=== PATIENT | female | born 1945 | race Caucasian/White ===

== ENCOUNTER 2017-09-30 07:44 | Day surgery (SDC) | payer OTHER ==
[~2017-09-30] VITALS: Wt 105.0 kg
[~2017-09-30 07:44] MED LIST: ACYC400; ACYC400 PO; ACYC800 PO; ACYCLOVIR; ALBIPROI INH; ALBU90OI; ALBU90OI61 INH; ALPR.5; ASPI81EC PO; ATOR10; BENTYL10 MG PO; BUPR150ER; CALCAVITDA; CARV25 PO; CARV6.25 PO; CONEST.625 PO; CONEST1.25; DIGO.125 PO; DOC250 PO; ENTRESTO 49 MG1 EACH PO; Effer-K 10 Meq10 MEQ; FLUO10 PO; FLUO20; FLUO20 PO; FLUSAL1005 INH; FLUSAL2505; FLUSAL2505 IH; FURO20; FURO20 PO; FURO40 PO; HYDACE5 PO; HYDACE5325 PO; LEVSOD50; LEVSOD50 PO; LISI10 PO; LISI5; LISI5 PO; LOSA25; LOVA20; METR500 PO; MORP15ER PO; MORP20ER PO; NEBI10; NEBI10 PO; ONDA4 PO; OXYACE5T PO; OXYB5; OXYC5; OXYGEN; POTA10T; POTCHL10ER PO; PRAV10; PRAV20 PO; PROM25 PO; PROM25S PR; RISE35; RISE35 PO; RXONDA4ODT MM; RXOXYACE PO; RXPROM25S PR; SPIR25 PO; TEMA30 PO; THEO200ERA PO; TIOT18 IH; TRAM50; TRAM50 PO; TRAZ100; VITAMIN D31000 UNIT PO; WARF1; WARF1 PO; WARF2 PO; WARF2.5 PO; WARF3 PO; WARF4; WARF5 PO; Zithromax250 MG PO
== END 2017-09-30 13:30 | disposition home or self-care (01) ==
LOC: MHTC 07:44
PROC: 0JPT0PZ Removal of Cardiac Rhythm Related Device from Trunk Subcutaneous Tissue and Fascia, Open Approach (ICD-10-PCS; principal; 2017-09-30)
PROC: 0JH608Z Insertion of Defibrillator Generator into Chest Subcutaneous Tissue and Fascia, Open Approach (ICD-10-PCS; principal; 2017-09-30)
DX: Z45.02 Encounter for adjustment and management of automatic implantable cardiac defibrillator (principal); I44.7 Left bundle-branch block, unspecified; I42.0 Dilated cardiomyopathy; I34.0 Nonrheumatic mitral (valve) insufficiency; I11.0 Hypertensive heart disease with heart failure; I50.9 Heart failure, unspecified; E03.9 Hypothyroidism, unspecified; J44.9 Chronic obstructive pulmonary disease, unspecified; N28.9 Disorder of kidney and ureter, unspecified; E56.1 Deficiency of vitamin K; Z88.2 Allergy status to sulfonamides; Z79.899 Other long term (current) drug therapy; Z79.82 Long term (current) use of aspirin; Z79.01 Long term (current) use of anticoagulants; Z87.891 Personal history of nicotine dependence; Z95.2 Presence of prosthetic heart valve
CPT/HCPCS: 33264; 99152; 99153; C1781; C1882; J0690; J1644; J2250; J2405; J3010; J7030; J7040

== ENCOUNTER → 2022-06-06 | Outpatient (CLI) | payer OTHER | END | disposition home or self-care (01) | LOC: LAB 09:04 → LAB SHORT 09:04 | DX: Z79.01 Long term (current) use of anticoagulants (principal); Z51.81 Encounter for therapeutic drug level monitoring | CPT/HCPCS: 36416; 85610 ==

== ENCOUNTER 2022-10-28 14:10 | Emergency (ER) | payer OTHER ==
[~2022-10-28] VITALS: Ht 162.6 cm; Wt 87.5 kg
[2022-10-28 15:02] LABS: BASOPHILS ABSOLUTE AUTO 0.02 K/mm3 (0.00-0.23); BASOPHILS PERCENT AUTO 0 % (0-2); EOSINOPHILS ABSOLUTE AUTO 0.06 K/mm3 (0.00-0.68); EOSINOPHILS PERCENT AUTO 1 % (0-6); Hematocrit 39.9 % (33.0-51.0); IMMATURE GRAN ABSOLUTE AUTO 0.04 K/mm3 (0.00-0.10); IMMATURE GRAN PERCENT AUTO 0 % (0-1); LYMPHOCYTES ABSOLUTE AUTO 1.11 K/mm3 (0.84-5.20); LYMPHOCYTES PERCENT AUTO 10 % (21-46); MONOCYTES ABSOLUTE AUTO 0.51 K/mm3 (0.16-1.47); MONOCYTES PERCENT AUTO 5 % (4-13); Mean Corpuscular HGB 30.7 pg (26.0-34.0); Mean Corpuscular HGB Conc 32.6 g/dL (31.5-36.5); Mean Corpuscular Volume 94 fL (80-100); Mean Platelet Volume 11.1 fL (9.1-12.4); NEUTROPHILS ABSOLUTE AUTO 9.25 K/mm3 (1.96-9.15); NEUTROPHILS PERCENT AUTO 84 % (41-73); Platelet Count 185 K/mm3 (150-400); RDW Coefficient Variation 14.2 % (11.7-14.2); RDW Standard Deviation 49.1 fL (35.1-46.3); Red Blood Cell Count 4.24 M/mm3 (3.80-5.20); White Blood Cell Count 10.99 K/mm3 (4.00-11.30)
[2022-10-28 15:22] LABS: Albumin, Blood 3.4 g/dL (3.4-5.0); Albumin/Globulin Ratio 0.8 (0.8-1.8); Bun/Creatinine Ratio 14.7 (12.0-20.0); Calcium, Blood 9.5 mg/dL (8.5-10.1); Creatinine, Blood 1.91 mg/dL (0.40-1.00); Potassium, Blood 4.6 mmol/L (3.5-5.5); Total Protein, Blood 7.4 g/dL (6.4-8.2)
[2022-10-28] MEDS ORDERED: NEBIVOLOL HCL5 MG PO (16:35)
[2022-10-28] MEDS ORDERED: ONDA4 PO (17:41)
[2022-10-28 17:47] VITALS: BP 114/54
[2022-10-28 19:14] LABS: International Normalized Ratio 3.74; Prothrombin Time Results 36.4 Sec (9.7-11.5)
== END 2022-10-28 17:45 | disposition home or self-care (01) ==
LOC: ER 14:10
PROVIDERS: Emergency Medicine; Student in an Organized Health Care Education/Training Program
DX: R11.2 Nausea with vomiting, unspecified (principal); F17.200 Nicotine dependence, unspecified, uncomplicated; Z88.2 Allergy status to sulfonamides; Z91.048 Other nonmedicinal substance allergy status
CPT/HCPCS: 36415; 80053; 83690; 84484; 85025; 85610; 93005; 93010; 96374; 99283-25; J2405

== ENCOUNTER 2023-11-12 21:32 | Emergency (ER) | payer OTHER ==
[~2023-11-12] VITALS: Ht 162.6 cm; Wt 90.7 kg
[2023-11-13 08:12] VITALS: BP 105/65
== END 2023-11-13 08:35 | disposition home or self-care (01) ==
LOC: ER 21:32
DX: G89.3 Neoplasm related pain (acute) (chronic) (principal); C18.9 Malignant neoplasm of colon, unspecified; E86.0 Dehydration; N39.0 Urinary tract infection, site not specified; I10 Essential (primary) hypertension; B18.9 Chronic viral hepatitis, unspecified; F17.200 Nicotine dependence, unspecified, uncomplicated; Z88.2 Allergy status to sulfonamides; Z91.048 Other nonmedicinal substance allergy status; Z79.82 Long term (current) use of aspirin; Z79.890 Hormone replacement therapy; Z79.51 Long term (current) use of inhaled steroids; Z79.01 Long term (current) use of anticoagulants; Z79.899 Other long term (current) drug therapy

== ENCOUNTER 2024-08-26 11:51 | Inpatient (IN) | payer OTHER ==
[~2024-08-26] VITALS: Ht 162.6 cm; Wt 76.3 kg
[~2024-08-26 11:51] MED LIST changes: +CEPH500 PO; +DOCU100 PO; +HYDR1TAB94 PO; +NARCAN4 M1; +NEBIVOLOL HCL5 MG PO
[2024-08-26] MEDS ORDERED: Ipratropium/Albuterol SulF 2.5-0.5MG/3 ML Amp INH ONE (12:40)
[2024-08-26] MEDS ORDERED: MethylPREDNISolone Sod Succ 125 MG Vial IV ONE (12:40)
[2024-08-26 13:13] LABS: BASOPHILS ABSOLUTE AUTO 0.03 K/mm3 (0.00-0.23); BASOPHILS PERCENT AUTO 0 % (0-2); EOSINOPHILS ABSOLUTE AUTO 0.08 K/mm3 (0.00-0.68); EOSINOPHILS PERCENT AUTO 1 % (0-6); Hematocrit 39.8 % (33.0-51.0); Hemoglobin 12.5 g/dL (11.5-16.0); IMMATURE GRAN ABSOLUTE AUTO 0.03 K/mm3 (0.00-0.10); IMMATURE GRAN PERCENT AUTO 0 % (0-1); LYMPHOCYTES ABSOLUTE AUTO 1.04 K/mm3 (0.84-5.20); LYMPHOCYTES PERCENT AUTO 12 % (21-46); MONOCYTES ABSOLUTE AUTO 0.53 K/mm3 (0.16-1.47); MONOCYTES PERCENT AUTO 6 % (4-13); Mean Corpuscular HGB 30.2 pg (26.0-34.0); Mean Corpuscular HGB Conc 31.4 g/dL (31.5-36.5); Mean Corpuscular Volume 96 fL (80-100); NEUTROPHILS PERCENT AUTO 80 % (41-73); Platelet Count 168 K/mm3 (150-400); RDW Coefficient Variation 13.2 % (11.7-14.2); RDW Standard Deviation 46.1 fL (35.1-46.3); Red Blood Cell Count 4.14 M/mm3 (3.80-5.20); White Blood Cell Count 8.61 K/mm3 (4.00-11.30)
[2024-08-26] MEDS ORDERED: Aspirin 81 MG Chew PO ONE (13:25)
[2024-08-26 13:37] LABS: Influenza A, PCR NEGATIVE (NEGATIVE); Influenza B, PCR NEGATIVE (NEGATIVE); Resp Syncytial Virus, PCR NEGATIVE (NEGATIVE); SARS-Cov-2 (COVID-19) PCR, MMC NEGATIVE (NEGATIVE)
[2024-08-26 13:39] LABS: Albumin, Blood 3.2 g/dL (3.4-5.0); Albumin/Globulin Ratio 0.8 (0.8-1.8); Bilirubin, Total 0.8 mg/dL (0.1-1.0); Bun/Creatinine Ratio 15.5 (12.0-20.0); Calcium, Blood 10.2 mg/dL (8.5-10.1); Creatinine, Blood 1.81 mg/dL (0.40-1.00); Globulin, Blood 3.8 g/dL (2.2-4.0); Potassium, Blood 4.4 mmol/L (3.5-5.5)
[2024-08-26] MEDS ORDERED: Ondansetron HCl 2 MG / ML 2ML Vial IV PRN (17:15)
[2024-08-26] MEDS ORDERED: Albuterol 2.5 MG/3 ML VIAL INH PRN (17:30)
[2024-08-26] MEDS ORDERED: Tiotropium Bromide 2.5 MCG/ACT MIST INHAL (10 ACT/4 GM) INH SCH (17:30)
[2024-08-26] MEDS ORDERED: Mometasone/Formoterol MDI 200/5 mcg 13 GM INH SCH (17:35)
[2024-08-26] MEDS ORDERED: Furosemide 10 MG/ML 4ML Vial IV SCH (18:00)
[2024-08-26 18:08] LABS: International Normalized Ratio 1.03
[2024-08-26 19:22] VITALS: BP 105/56
[2024-08-26] MEDS ORDERED: Warfarin Sodium 5 MG Tab PO ONE (19:55)
[2024-08-26 20:18] LABS: Anti-Xa UFH, PHA Monitoring <0.10 IU/mL
--- NOTE | 2024-08-26 20:34 | NUR ---
PATIENT IS A NEW ADMIT FROM THE ED. ALERT AND ORIENTED, ONE ASSIST FROM GURNEY TO BED. DENIES CHEST PAIN AND N/V. SOB W/EXERTION. ON ROOM AIR. TELEMETRY V-PACED 90. ORIENTED TO ROOM AND CALL LIGHT SYSTEM. FOOD PROVIDED PER DIET ORDER. WCTM.
[2024-08-26] MEDS ORDERED: Dose Adjust by Pharmacy XX STA (20:44)
[2024-08-26 20:45] LABS: Digoxin (Lanoxin) <0.06 ug/mL (0.80-2.00)
[2024-08-26] MEDS ORDERED: Heparin Sodium 5000 Units/ML 1ML MDV IV ONE (20:45)
[2024-08-26] MEDS ORDERED: Heparin Sodium,Porcine/0.5 NS 500 ML IV SCH (20:45)
[2024-08-27] MEDS ORDERED: FentaNYL Citrate 50 MCG/ML 2 ML Injection IV PRN (01:55)
--- NOTE | 2024-08-27 02:38 | NUR ---
HOSPITALIST CONTACT PT C/O OF PAIN IN SIDES/ABD R/T CANCER DX. PT TAKES OXYCODONE AT HOME. CALL TO HOSPITALIST. SPOKE TO DR RDZ. PER --ORDER TO RESUME HOME MED Q6 IF GFR >60, IF NOT--OK TO ORDER FENTANYL 25-50MCG Q4 PRN. VERIFIED PT HAS IMPAIRED KIDNEY FUNCTION AND GFR LESS THAN 60. ENTERED ORDER FOR FENTANYL PER ORDER.
--- NOTE | 2024-08-27 04:03 | NUR ---
SHIFT SUMMARY PATIENT HAD NO ACUTE CHANGES. AXOX 4 AND SBA TO BSC. SOB W/EXERTION. ON LASIX. DENIES CHEST PAIN, AND N/V. VSS/AFEBRILE. REPORTED ABDOMEN PAIN AND IV FENTANYL 50 MCG GIVEN PER EMAR. PIV'S INTACT. HEPARIN INFUSING @ 18.9 mL/HR MANAGE BY PHARMACY. TELE MONITOR V-PACED 90. REPORTS SHE IS NON-COMPLIANT WITH HOME MEDICATION. CALL LIGHT IN REACH. BED IN LOWEST POSITION. WILL CONTINUE TO MONITOR UNTIL DAY SHIFT NURSE ASSUMES CARE
[2024-08-27 04:56] LABS: Albumin/Globulin Ratio 0.9 (0.8-1.8); Bilirubin, Total 0.7 mg/dL (0.1-1.0); Bun/Creatinine Ratio 18.8 (12.0-20.0); Calcium, Blood 9.9 mg/dL (8.5-10.1); Creatinine, Blood 1.81 mg/dL (0.40-1.00); Globulin, Blood 3.4 g/dL (2.2-4.0); Potassium, Blood 4.4 mmol/L (3.5-5.5); Total Protein, Blood 6.4 g/dL (6.4-8.2)
[2024-08-27 05:07] VITALS: BP 122/80
[2024-08-27] MEDS ORDERED: Clarify Drug Order XX ONE (05:10)
[2024-08-27 05:25] LABS: International Normalized Ratio 1.07; Prothrombin Time Results 11.4 Sec (9.7-11.5)
[2024-08-27] MEDS ORDERED: Levothyroxine Sodium 0.05 MG Tab PO SCH (06:00)
[2024-08-27 07:39] VITALS: BP 101/74
--- NOTE | 2024-08-27 08:10 | NUR ---
CALLED DR VITALE RE BP AND LASIX DUE. HE CHANGING ORDERS. PARAMETERS FOR METOPROLOL GIVEN.
[2024-08-27 08:15] VITALS: BP 116/76
[2024-08-27] MEDS ORDERED: Aspirin 81 MG Chew PO SCH (09:00)
[2024-08-27] MEDS ORDERED: Metoprolol Succinate 25 MG TABCR PO SCH (09:00)
[2024-08-27] MEDS ORDERED: FLUoxetine HCL 20 MG CAP PO SCH (09:00)
[2024-08-27] MEDS ORDERED: Docusate Sodium 100 MG Cap PO SCH (09:00)
[2024-08-27] MEDS ORDERED: Dose Adjust by Pharmacy XX STA (11:23)
[2024-08-27 11:48] VITALS: BP 106/66
[2024-08-27] MEDS ORDERED: Furosemide 40 MG Tab PO SCH (14:00)
[2024-08-27] MEDS ORDERED: Digoxin 0.125 MG Tab PO SCH (14:00)
[2024-08-27 16:38] VITALS: BP 112/82
[2024-08-27] MEDS ORDERED: Warfarin Sodium 4 MG Tab PO ONE (18:00)
--- NOTE | 2024-08-27 19:20 | NUR ---
PT PLEASANT COOP TODAY. STATES STOPPED TAKING HOME MEDS 6 MONTHS AGO, THOUGHT WAS GOING TO . ENCOURAGED HER TO TAKE MEDS AND BE STRONG IS ABLE. AMBULATING TO BATHROOM TODAY SBA FWW. PT STATES SOB IMPROVED. FEELING MORE POSITIVE. NO OTHER CONCERNS NOTED. BED IN LOW POSITION, CALL LITE IN REACH, CALLS APPROP
[2024-08-27 19:49] VITALS: BP 71/61
[2024-08-28 01:46] VITALS: BP 86/54
[2024-08-28] MEDS ORDERED: Midodrine 5 MG Tab PO ONE (02:10)
[2024-08-28 03:19] VITALS: BP 116/76
[2024-08-28 05:41] LABS: BASOPHILS ABSOLUTE AUTO 0.02 K/mm3 (0.00-0.23); BASOPHILS PERCENT AUTO 0 % (0-2); EOSINOPHILS ABSOLUTE AUTO 0.08 K/mm3 (0.00-0.68); EOSINOPHILS PERCENT AUTO 1 % (0-6); Hematocrit 37.5 % (33.0-51.0); Hemoglobin 12.2 g/dL (11.5-16.0); IMMATURE GRAN ABSOLUTE AUTO 0.06 K/mm3 (0.00-0.10); IMMATURE GRAN PERCENT AUTO 1 % (0-1); LYMPHOCYTES ABSOLUTE AUTO 2.02 K/mm3 (0.84-5.20); LYMPHOCYTES PERCENT AUTO 16 % (21-46); MONOCYTES PERCENT AUTO 6 % (4-13); Mean Corpuscular HGB Conc 32.5 g/dL (31.5-36.5); Mean Corpuscular Volume 95 fL (80-100); Mean Platelet Volume 11.3 fL (9.1-12.4); NEUTROPHILS ABSOLUTE AUTO 9.46 K/mm3 (1.96-9.15); NEUTROPHILS PERCENT AUTO 77 % (41-73); Platelet Count 208 K/mm3 (150-400); RDW Coefficient Variation 13.4 % (11.7-14.2); RDW Standard Deviation 46.6 fL (35.1-46.3); Red Blood Cell Count 3.93 M/mm3 (3.80-5.20); White Blood Cell Count 12.34 K/mm3 (4.00-11.30)
[2024-08-28 05:53] LABS: Anti-Xa UFH, PHA Monitoring 0.42 IU/mL; International Normalized Ratio 1.1; Prothrombin Time Results 11.7 Sec (9.7-11.5)
[2024-08-28 06:09] LABS: Bun/Creatinine Ratio 22.8 (12.0-20.0); Calcium, Blood 10.2 mg/dL (8.5-10.1); Creatinine, Blood 2.19 mg/dL (0.40-1.00); Potassium, Blood 3.9 mmol/L (3.5-5.5)
--- NOTE | 2024-08-28 06:27 | NUR ---
EMULSIFICATION OPERATOR SUMMARY W/HOSPITALIST CONTACT PT A/OX3. FORGETFUL. ABLE TO MAKE NEEDS KNOWN WHEN PROMPTED AND WHEN AT BEDSIDE. PT NOT ALWAYS REMEMBERING TO USE CALL LIGHT FOR ASSIST. PT ON CONT HEPARIN DRIP--NO CHANGES TO RATE OF INFUSION. FOUND PT BLOOD PRESSURE TO BE LOW AT 0146; NOTED AT THIS TIME THAT PREVIOUS BP IS ALSO LOW. CALL TO HOSPITALIST. SPOKE TO DR RDZ. ADVISED OF PT DX CHF EXAC. ADVISED PT ANXIOUS/RESTLESS. NEW ORDER FOR ONE TIME DOSE MIDODRINE 5MG. RECHECK OF BP SHOWED IMPROVED AT 116/76. PT WAS WAKEFUL ALL NIGHT. THE PT DID NOT SLEEP. PT PRESENTS ANXIOUS AND RESTLESS T/O THE SHIFT. PT CANT GET COMFORTABLE AND COMPLAINING OF "EBEE GEBEES" WHEN ASKED WHAT THAT MEANS, PT STATES DISCOMFORT/RESTLESSNESS IN THE LEGS. PT GIVEN FENTANYL 2X FOR LEG PAIN. CALL LIGHT ACCESSIBLE. BED ALARM IN PLACE. REGULAR INTERVAL ROUNDING COMPLETE. WILL CONTINUE TO MONITOR UNTIL REPORT GIVEN TO ONCOMING NURSE.
[2024-08-28 07:49] VITALS: BP 121/87
[2024-08-28] MEDS ORDERED: Empagliflozin 10 MG TAB PO SCH (09:00)
[2024-08-28] MEDS ORDERED: Metoprolol Succinate 25 MG TABCR PO SCH (09:00)
[2024-08-28 12:22] VITALS: BP 123/73
[2024-08-28 16:56] VITALS: BP 121/80
[2024-08-28] MEDS ORDERED: Warfarin Sodium 4 MG Tab PO ONE (18:00)
--- NOTE | 2024-08-28 18:58 | NUR ---
SHIFT SUMMARY PT IS A/OX3, FORGETFUL AND IMPULSIVE AT TIMES, BED/CHAIR ALARM ON. SBA TO BSC/CHAIR. CONTINUING HEPARING DRIP AT 18.9 ML/HR AND 15 U/KG/HR. ON TELE, VENTIRCULAR PACED. ON RA, SATS MAINTAINING >95%. PT UP TO THE CHAIR THROUGHOUT THE DAY.
[2024-08-28 20:47] VITALS: BP 118/72
[2024-08-29] VITALS (7 sets, daily range): BP systolic 113–138; BP diastolic 71–85
[2024-08-29 05:10] LABS: BASOPHILS ABSOLUTE AUTO 0.02 K/mm3 (0.00-0.23); BASOPHILS PERCENT AUTO 0 % (0-2); EOSINOPHILS ABSOLUTE AUTO 0.14 K/mm3 (0.00-0.68); EOSINOPHILS PERCENT AUTO 2 % (0-6); Hematocrit 35.8 % (33.0-51.0); Hemoglobin 11.6 g/dL (11.5-16.0); IMMATURE GRAN ABSOLUTE AUTO 0.05 K/mm3 (0.00-0.10); IMMATURE GRAN PERCENT AUTO 1 % (0-1); LYMPHOCYTES ABSOLUTE AUTO 1.51 K/mm3 (0.84-5.20); LYMPHOCYTES PERCENT AUTO 17 % (21-46); MONOCYTES ABSOLUTE AUTO 0.57 K/mm3 (0.16-1.47); MONOCYTES PERCENT AUTO 6 % (4-13); Mean Corpuscular HGB 30.6 pg (26.0-34.0); Mean Corpuscular HGB Conc 32.4 g/dL (31.5-36.5); Mean Corpuscular Volume 95 fL (80-100); Mean Platelet Volume 11.3 fL (9.1-12.4); NEUTROPHILS ABSOLUTE AUTO 6.55 K/mm3 (1.96-9.15); NEUTROPHILS PERCENT AUTO 74 % (41-73); Platelet Count 202 K/mm3 (150-400); RDW Coefficient Variation 13.3 % (11.7-14.2); RDW Standard Deviation 45.7 fL (35.1-46.3); Red Blood Cell Count 3.79 M/mm3 (3.80-5.20); White Blood Cell Count 8.84 K/mm3 (4.00-11.30)
[2024-08-29 05:18] LABS: Anti-Xa UFH, PHA Monitoring 0.33 IU/mL; International Normalized Ratio 1.39; Prothrombin Time Results 14.5 Sec (9.7-11.5)
[2024-08-29 05:39] LABS: Bun/Creatinine Ratio 23.1 (12.0-20.0); Calcium, Blood 9.7 mg/dL (8.5-10.1); Creatinine, Blood 2.08 mg/dL (0.40-1.00); Potassium, Blood 3.8 mmol/L (3.5-5.5)
[2024-08-29] MEDS ORDERED: Clarify Drug Order XX ONE (05:45)
--- NOTE | 2024-08-29 05:57 | NUR ---
SHIFT SUMMARY PT IS SITTING IN BED AT MOMENT. PT HAS BEEN RESTLESS, IMPULSIVE, AND FORGETFULL THROUGHOUT NIGHT. SHE HAS GOTTEN OUT OF BED NUMEROUS TIMES DURING THIS SHIFT. EVERY TIME, STAFF REMINDS PT TO USE CALL LIGHT IF IN NEED OF ANYTHING, AND PT VERBALIZES UNDERSTANDING. HOWEVER, PT DISREGARDS INSTRUCTIONS. PT HAS BEEN AOX3 AND OTHERWISE COOPERATIVE. PT IS ON HEPARIN GTT AND TELEMETRY. NO ACUTE EVENTS OVERNIGHT.
--- NOTE | 2024-08-29 15:07 | NUR ---
SHIFT SUMMARY PATIENT AMBULATING TO AND FROM BATHROOM THIS SHIFT. A/OX3-4, FORGETFUL. CONTINUES ON HEPARIN DRIP AND COUMADIN PER MAR. VSS. DISCOURAGED AT HAVING TO STAY IN THE HOSPITAL UNTIL LABS ARE THERAPEUTIC. DAUGHTER IN LAW'S NUMBER GIVEN TO DR VITALE HE WANTED TO SPEAK TO FAMILY. CALL LIGHT IN REACH. CARES ONGOING.
[2024-08-29] MEDS ORDERED: Furosemide 40 MG Tab PO SCH (15:35)
--- NOTE | 2024-08-29 15:56 | NUR ---
PATIENT C/O FEELING NAUSEATED AND "FEELING PLAIN SICK", STATES TO HAVING BM THIS SHIFT. ACTIVE BOWEL TONES. ZOFRAN ADMINISTERED PER SEP.
[2024-08-29] MEDS ORDERED: Warfarin Sodium 4 MG Tab PO ONE (18:00)
[2024-08-30] VITALS (7 sets, daily range): BP systolic 85–117; BP diastolic 60–77
[2024-08-30 05:31] LABS: BASOPHILS ABSOLUTE AUTO 0.02 K/mm3 (0.00-0.23); BASOPHILS PERCENT AUTO 0 % (0-2); EOSINOPHILS ABSOLUTE AUTO 0.08 K/mm3 (0.00-0.68); EOSINOPHILS PERCENT AUTO 1 % (0-6); Hematocrit 36.8 % (33.0-51.0); Hemoglobin 12.1 g/dL (11.5-16.0); IMMATURE GRAN ABSOLUTE AUTO 0.04 K/mm3 (0.00-0.10); IMMATURE GRAN PERCENT AUTO 1 % (0-1); LYMPHOCYTES ABSOLUTE AUTO 1.18 K/mm3 (0.84-5.20); LYMPHOCYTES PERCENT AUTO 15 % (21-46); MONOCYTES ABSOLUTE AUTO 0.45 K/mm3 (0.16-1.47); MONOCYTES PERCENT AUTO 6 % (4-13); Mean Corpuscular HGB 30.9 pg (26.0-34.0); Mean Corpuscular HGB Conc 32.9 g/dL (31.5-36.5); Mean Corpuscular Volume 94 fL (80-100); Mean Platelet Volume 10.9 fL (9.1-12.4); NEUTROPHILS ABSOLUTE AUTO 6.07 K/mm3 (1.96-9.15); NEUTROPHILS PERCENT AUTO 77 % (41-73); Platelet Count 189 K/mm3 (150-400); RDW Coefficient Variation 13.4 % (11.7-14.2); RDW Standard Deviation 45.4 fL (35.1-46.3); Red Blood Cell Count 3.91 M/mm3 (3.80-5.20); White Blood Cell Count 7.84 K/mm3 (4.00-11.30)
[2024-08-30 05:46] LABS: Anti-Xa UFH, PHA Monitoring 0.33 IU/mL; International Normalized Ratio 1.89; Prothrombin Time Results 19.3 Sec (9.7-11.5)
[2024-08-30 06:00] LABS: Bun/Creatinine Ratio 18.7 (12.0-20.0); Calcium, Blood 9.8 mg/dL (8.5-10.1); Creatinine, Blood 2.09 mg/dL (0.40-1.00); Magnesium, Blood 2.1 mg/dL (1.6-2.4)
--- NOTE | 2024-08-30 06:17 | NUR ---
SHIFT SUMMARY PT IS RESTING COMFORTABLY IN BED. PT HAS BEEN IN AND OUT OF BED THE ENTIRE NIGHT, ONLY GETTING A COUPLE OF HOURS OF SLEEP OVERNIGHT. PT HAS BEEN RESTLESS BUT COMPLIANT. SHE STILL DOES NOT CALL FOR HER NEEDS. TELEMETRY IS ON. BED REMAINS LOCKED IN LOWEST POSITION WITH BED ALARM ARMED. PT IS ON HEPARIN DRIP, AND HAS BEEN CAUTIONED ABOUT ACCIDENTAL REMOVAL IF SHE STANDS UP WITHOUT ASSISTANCE. PT VERBALIZES UNDERSTANDING. OTHERWISE, NO ACUTE EVENTS OVERNIGHT.
[2024-08-30] MEDS ORDERED: Clarify Drug Order XX ONE (06:25)
[2024-08-30] MEDS ORDERED: TraMADol HCl 50 MG Tab PO PRN ×2 (15:10→15:25)
[2024-08-30] MEDS ORDERED: Warfarin Sodium 5 MG Tab PO SCH (18:00)
[2024-08-30] MEDS ORDERED: Pramipexole DI-HCL 0.125 MG Tab PO SCH (21:00)
[2024-08-31 00:42] VITALS: BP 123/71
--- NOTE | 2024-08-31 02:53 | NUR ---
INTERMITTENT EPISODES OF PACING, VOICED HAVING THE "JOSE DE JESUS BEE ERICK BEE'S". VOICED ANXIETY OF UNKNOWN ORIGIN. MD NOTIFIED AND AATIVAN 0.5 MF PO X 1 ORDERED. CALL LIGHT IN REACH
[2024-08-31] MEDS ORDERED: LORazepam 0.5 MG Tab PO ONE (02:55)
--- NOTE | 2024-08-31 03:25 | NUR ---
SURVEY RESEARCH ASSOCIATE SUMMARY BP LOW AT SHIFT START, BUT TRENDED UP TO WNL, OTHERWISE VSS. ALERT AND ORIENTED, HEPARIN DRIP CONTINUES (SEE MAR FOR DETAILS). INTERMITTENT RESTLESSNESS, MULTIPLE ATTEMPTS TO DISCUSS, REDIRECT. VOICED FEELING "JOSE DE JESUS BEE ERICK BEES". MD NOTIFIED AND ATIVAN PO X 1 ORDERED/ADMINISTERED. UP WITH OBSERVATOIN. ABLE TO REPOSITION SELF IN BED FOR COMFORT. CALL LIGHT IN REACH, RAILS UP X 2 AND BED IN LOW POSITION FOR SAFETY. WILL CONTINUE TO MONITOR.
[2024-08-31 04:01] VITALS: BP 105/70
[2024-08-31 05:58] LABS: Hematocrit 35.8 % (33.0-51.0); Hemoglobin 11.7 g/dL (11.5-16.0); Platelet Count 192 K/mm3 (150-400)
[2024-08-31 06:14] LABS: Anti-Xa UFH, PHA Monitoring 0.29 IU/mL; International Normalized Ratio 2.16; Prothrombin Time Results 21.8 Sec (9.7-11.5)
[2024-08-31] MEDS ORDERED: Dose Adjust by Pharmacy XX STA ×2 (07:07→14:20)
[2024-08-31 07:13] VITALS: BP 115/74
--- NOTE | 2024-08-31 10:45 | NUR ---
PATIENT ASSISTED TO BEDSIDE COMMODE. SCANT VOID NO BM. UP TO CHAIR IN ROOM. BEDDING CHANGE. PATIENT ASSISTED WITH PHONE CALL. CALL LIGHT IN REACH. FAMILY IN ROOM. WILL CONTINUE TO MONITOR WHILE PRIMARY RN ON BREAK.
[2024-08-31 11:44] VITALS: BP 107/68
--- NOTE | 2024-08-31 16:16 | NUR ---
SUMMARY INCREASED HEPARIN DRIP TO 17 UNITS/KG/HR. PATIENT STILL GETS UP WITHOUT PRESSING CALL LIGHT. STAND-BY ASSIST RELATED TO LINES. PRN TRAMADOL GIVEN FOR BACK PAIN, WHICH PATIENT REPORTS IS BETTER TODAY. PHYSICAL THERAPY EVALUATED TODAY. BED ALARM ON, NONSKID SOCKS ON.
[2024-08-31 16:33] VITALS: BP 114/72
[2024-08-31] MEDS ORDERED: Warfarin Sodium 4 MG Tab PO SCH (18:00)
[2024-08-31 19:38] VITALS: BP 107/65
[2024-08-31] MEDS ORDERED: Clarify Drug Order XX ONE (21:05)
[2024-09-01 00:13] VITALS: BP 95/56
[2024-09-01 04:07] VITALS: BP 105/71
--- NOTE | 2024-09-01 04:12 | NUR ---
SHIFT SUMMARY PT ALERT ORIENTED X 4 ABLE TO VERBALIZE NEEDS GETS UP TO BEDSIDE COMMODE WITH 1 PERSON SBA. SHE REFUSES TO CALL FOR ASSIST TO GET UP. HER BED ALARM IS ON. REMAINS ON TELEMETRY AT V PACED AT 80. C/O LEG PAIN MEDICATED WITH TRAMADOL WITH GOOD RELIEF. SHE REMAINS ON A HEPARIN DRIP AT 17U/KG/HR OR 21.4 ML/HR. SHE HAD HER ANTIXA DONE AT 2000 AND IT WAS 0.39. WE ARE CONTINUING WITH THE SAME DOSE AND WILL RECHECK AT 0500. SHE HAD A LOW BP THIS AM AT 95/56. ALL OTHER VSS ON RA. THERE LOOKIMG FOR A SNF FOR HER TO D/C. RESTING IN BED AT THIS TIME WITH CALL LIGHT IN REACH AND BED ALARM ON.
[2024-09-01 05:14] LABS: Hematocrit 36.7 % (33.0-51.0); Hemoglobin 11.9 g/dL (11.5-16.0); Mean Platelet Volume 11.1 fL (9.1-12.4); Platelet Count 196 K/mm3 (150-400)
[2024-09-01 05:30] LABS: Anti-Xa UFH, PHA Monitoring 0.4 IU/mL; International Normalized Ratio 2.17; Prothrombin Time Results 21.9 Sec (9.7-11.5)
[2024-09-01] MEDS ORDERED: Clarify Drug Order XX ONE (05:45)
[2024-09-01 07:18] VITALS: BP 126/81
[2024-09-01] MEDS ORDERED: Enoxaparin 80 MG/0.8 ML SYR SC SCH (09:00)
[2024-09-01 11:06] VITALS: BP 107/69
--- NOTE | 2024-09-01 12:49 | NUR ---
PHARMACY DC'D HEPARIN DRIP AND STARTED ON LOVENOX WELL MANAGING COUMADIN. PATIENT PARANOID AND ANXIOUS THIS MORNING AFTER FAMILY HAD DISCUSSION WITH CASE MANAGEMENT ABOUT PLACEMNET. PATIENT THINKS WE ARE STOPPING HER THERAPY DUE TO INSURANCE ISSUES. I EDUCATED PATIENT ON REASONING FOR STOPPPING HEPARIN THERAPY. PATIENT VERBALIZED UNDERSTANDING. STILL ANXIOUS THIS MORNING WHILE WORKING WITH OCCUPATIONAL THERAPY. PATIENT DID NOT WANT TO PARTICIPATE MUCH.
[2024-09-01 15:57] VITALS: BP 118/68
--- NOTE | 2024-09-01 16:49 | NUR ---
SUMMARY PATIENT ANXIOUS/DEPRESSED THIS EVENING. CONVINCED PATIENT TO GET UP WITH TRANSCRIPTION MANAGER TO TAKE A SHOWER AND HAVE US WASH HER HAIR. PATIENT HAD MATTING TO BACK OF HEAD, PATIENT AGREEABLE TO HAVE US CUT IT OUT WE COULD NOT BRUSH IT OUT. PATIENT VERBALIZES SHE IS FEELING BETTER. PENDING SNF PLACEMENT. HEPARIN WAS DC'D, PHARMACY MANAGING COUMADIN THERAPY.
[2024-09-01] MEDS ORDERED: Warfarin Sodium 3 MG Tab PO ONE (18:00)
[2024-09-01 19:46] VITALS: BP 97/62
[2024-09-01] MEDS ORDERED: Calcium Carbonate 500 MG Tab Chew PO PRN (23:25)
[2024-09-02 02:26] VITALS: BP 127/64
[2024-09-02 05:02] LABS: International Normalized Ratio 2.17; Prothrombin Time Results 21.9 Sec (9.7-11.5)
--- NOTE | 2024-09-02 06:12 | NUR ---
SHIFT SUMMARY PT RESTLESS THROUGH THE NIGHT. SLEPT SHORT INTERVALS ONLY. MEDICATED WITH ULTRAM FOR BACK PAIN X1 PER EMAR. PT C/O LEG CRAMPS, AND AMBULATED IN WOODWARD WITH SBA AND WALKER, NEEDING TO REST X2 DURING WALK. AMBULATED APPROX 150 FEET. PT IMPULSIVE DURING THE NIGHT, NOT CALLING TO USE THE BATHROOM. BED IN LOWEST POSITION, CALL LIGHT WITHIN REACH, SIDERAILS UP X2.
[2024-09-02 07:13] VITALS: BP 119/70
[2024-09-02 11:38] VITALS: BP 92/64
[2024-09-02] MEDS ORDERED: Lisinopril 5 MG Tab PO SCH (12:00)
[2024-09-02 15:56] VITALS: BP 107/64
[2024-09-02] MEDS ORDERED: Warfarin Sodium 4 MG Tab PO SCH (18:00)
--- NOTE | 2024-09-02 19:46 | NUR ---
SHIFT SUMMARY PT IS A/OX3, CONFUSION TO DATE/TIME. SBA WITH FWW TO BATHROOM/CHAIR. NO ACUTE CHANGES THROUGHOUT THIS SHIFT. PT CONTINUING WARFARIN AND LOVENOX. ON TELE, VENTRICULAR PACED. FAMILY AT BEDSIDE THROUGHOUT THIS SHIFT.
[2024-09-02 19:55] VITALS: BP 106/67
[2024-09-03 00:22] VITALS: BP 124/73
[2024-09-03] MEDS ORDERED: OxyCODONE HCL 5 MG TAB PO PRN (00:45)
[2024-09-03 04:32] VITALS: BP 124/72
[2024-09-03 06:08] LABS: International Normalized Ratio 2.21; Prothrombin Time Results 22.3 Sec (9.7-11.5)
[2024-09-03 07:15] VITALS: BP 124/69
--- NOTE | 2024-09-03 07:45 | NUR ---
GYMNASTIC COACH SUMMARY PT WAS HAVING A HARD TIME SLEEPING RELATED TO HER CHRONIC CANCER RELATED PAIN AND BY MIDNIGHT SHE WAS BECOMING VERY FRUSTRATED THAT HER HOME DOSE OF OXYCODONE WASNT AVAILABLE TO HER. SHE WOULDNT TAKE THE TRAMADOL BECAUSE IT "DOESNT WORK" AND WHEN SHE TRIED IT THE PREVIOUS NIGHT IT MADE HER "SICK TO MY STOMACH". PTS HOME DOSE OF OXYCODONE IS 10MG BASED ON HER PHARMACY PICK-UP/REFILL RECORDS. DR CHAVEZ SAYS TO START HER ON 5MG Q6 TO MAKE SURE SHE DOESNT GET CONFUSED OR DROWSY AND THEN MAYBE WE CAN INCREASE HER DOSE AT A LATER TIME. PT STARED ON 5MG OXYCODONE AND SHE DIDNT BECOME CONFUSED OR DROWSY BUT SHE WAS STILL FRUSTRATED THAT IT DIDNT WORK WELL WHAT SHE TAKES AT HOME.
[2024-09-03 11:14] VITALS: BP 118/81
[2024-09-03 15:40] VITALS: BP 113/66
[2024-09-03] MEDS ORDERED: Warfarin Sodium 3 MG Tab PO SCH (18:00)
[2024-09-03 19:04] VITALS: BP 99/60
--- NOTE | 2024-09-03 19:34 | NUR ---
SHIFT SUMMARY PT IS A/OX3-4, CONFUSION AT TIMES. 1 PERSON ASSIST WITH FWW. NO ACUTE CHANGES THROUGHOUT THIS SHIFT. CONTINUING WARFARIN AND LOVENOX. INR CLOSER TO GOAL. FAMILY AT BEDSIDE THIS AFTERNOON. ON RA. ON TELE VENTIRCULAR PACED IN THE 70'S.
[2024-09-04] VITALS (8 sets, daily range): BP systolic 78–127; BP diastolic 55–81
[2024-09-04] MEDS ORDERED: OxyCODONE HCL 5 MG TAB PO PRN (00:20)
[2024-09-04 05:18] LABS: International Normalized Ratio 3.02; Prothrombin Time Results 29.8 Sec (9.7-11.5)
--- NOTE | 2024-09-04 05:20 | NUR ---
AIRPLANE TECHNICIAN SUMMARY AIRPLANE TECHNICIAN SUMMARY PT WAS HAVING A HARD TIME SLEEPING RELATED TO HER "CANCER PAIN" AND SHE WAS FRUSTRATED THAT SHE WASNT TAKING HER HOME DOSE OF 10MG OF OXYCODONE. SHE WAS STARTED ON A LOWER DOSE YESTERDAY (5MG) TO MAKE SURE THAT SHE DIDNT HAVE ANY CONFUSION OR DIZZINESS AND SINCE SHE DIDNT HAVE ANY SIDE EFFECTS FROM THE 5MG I CALLED DR CHAVEZ AND ASKED FOR HER WHOLE HOME DOSE. PT IS MUCH LESS FRUSTRATED AND APPEARED TO TOLERATE THE 10MG WITH NO SIDE EFFECTS AND SHE REPORTED HER PAIN WAS BETTER BUT NEVER GONE. PER REPORT, PLAN IS TO DISCHARGE PT TO FACILITY HER FAMILY FEELS SHE CANNOT SAFELY CARE FOR HERSELF AT HOME EVIDENCED BY HER NON-COMPLIANCE WITH HER HOME MEDICATIONS. CALL LIGHT IS WITHIN REACH AND BED ALARM IS ON.
[2024-09-04] MEDS ORDERED: Warfarin Sodium 4 MG Tab PO SCH (18:00)
[2024-09-05 00:42] VITALS: BP 104/66
[2024-09-05 03:30] VITALS: BP 117/72
[2024-09-05 04:36] LABS: Hematocrit 38.9 % (33.0-51.0); Hemoglobin 12.8 g/dL (11.5-16.0); Mean Corpuscular HGB 30.9 pg (26.0-34.0); Mean Corpuscular HGB Conc 32.9 g/dL (31.5-36.5); Mean Corpuscular Volume 94 fL (80-100); Platelet Count 203 K/mm3 (150-400); RDW Coefficient Variation 13.6 % (11.7-14.2); RDW Standard Deviation 46.1 fL (35.1-46.3); Red Blood Cell Count 4.14 M/mm3 (3.80-5.20); White Blood Cell Count 9.77 K/mm3 (4.00-11.30)
[2024-09-05 04:50] LABS: International Normalized Ratio 3.61; Prothrombin Time Results 35.1 Sec (9.7-11.5)
[2024-09-05 05:02] LABS: Magnesium, Blood 2.1 mg/dL (1.6-2.4)
[2024-09-05 05:03] LABS: Albumin, Blood 3.3 g/dL (3.4-5.0); Anion Gap 13 mmol/L (3-11); Blood Urea Nitrogen 51 mg/dL (8-24); Bun/Creatinine Ratio 21.7 (12.0-20.0); CO2, Blood 22 mmol/L (21-32); Calcium, Blood 9.9 mg/dL (8.5-10.1); Chloride, Blood 106 mmol/L (98-108); Creatinine, Blood 2.35 mg/dL (0.40-1.00); Glomerular Filtration Rate 20 (60-); Glucose, Blood 119 mg/dL (70-99); Phosphorus, Blood 4.1 mg/dL (2.5-4.9); Sodium, Blood 137 mmol/L (136-145)
[2024-09-05 09:00] VITALS: BP 94/66
[2024-09-05 16:10] VITALS: BP 90/56
[2024-09-05] MEDS ORDERED: Warfarin Sodium 3 MG Tab PO SCH (18:00)
[2024-09-05 19:17] VITALS: BP 105/53
--- NOTE | 2024-09-05 19:22 | NUR ---
NO ACUTE CHANGES, BROTHER VISITED TODAY, CLEARLY MAKES NEEDS KNOWN, MEDICATED FOR PAIN X1, GOOD APPETITE THROUGH OUT THE DAY, PATIENT LESS IMPULSIVE GETTING OUT OF BED. BED ALARM ON, CALL LIGHT WITH IN REACH, WILL RELAY TO PM RN
[2024-09-06] VITALS (9 sets, daily range): BP systolic 81–118; BP diastolic 55–66
--- NOTE | 2024-09-06 05:15 | NUR ---
ROTARY CUTTER FEEDER SUMMARY NO ACUTE CHANGES OVERNIGHT. PER SOCIAL WORK NOTE, WE ARE PLANNING ON DISCHARGING FRIDAY, 09/07, TO [facility]. BED ALARM IS ON AND CALL LIGHT IS WITHIN REACH.
[2024-09-06 05:54] LABS: International Normalized Ratio 3.12; Prothrombin Time Results 30.7 Sec (9.7-11.5)
[2024-09-06] MEDS ORDERED: Warfarin Sodium 5 MG Tab PO ONE (18:00)
--- NOTE | 2024-09-06 19:47 | NUR ---
SHIFT SUMMARY PT CONT LEVEL OF CARE WITH NO ACUTE CHANGES NOTED. PT NOTED TO BE A&OX 3 AND SBA WITH TRANSFERS. PT NOTED TO CALL APPROPRAITE THIS SHIFT AND TO MAKE NEEDS KNOW. PLAN IS FOR PT TO DC TOMORROW TO [facility].
[2024-09-07 05:08] VITALS: BP 119/68
[2024-09-07 05:42] LABS: International Normalized Ratio 2.85; Prothrombin Time Results 28.2 Sec (9.7-11.5)
[2024-09-07 07:41] VITALS: BP 116/62
[2024-09-07 11:36] VITALS: BP 116/62
[2024-09-07] MEDS ORDERED: METO25ER PO (14:56)
[2024-09-07] MEDS ORDERED: Calcium Carbon500 MG PO (14:56)
[2024-09-07] MEDS ORDERED: JARDIANCE10 MG PO (14:57)
[2024-09-07] MEDS ORDERED: Lisinopril2.5 MG PO (14:58)
[2024-09-07] MEDS ORDERED: FURO40 PO (14:58)
[2024-09-07] MEDS ORDERED: PRAM.125 PO (14:59)
[2024-09-07] MEDS ORDERED: OXAYDO5 M1 PO (14:59)
[2024-09-07 16:12] VITALS: BP 110/57
[2024-09-07] MEDS ORDERED: Warfarin Sodium 3 MG Tab PO SCH (18:00)
--- NOTE | 2024-09-07 18:57 | NUR ---
PT ALERT AND ORIENTED X3, NOT SITUATION. PLEASANT, FORGETFUL, IMPULSIVE, BED/CHAIR ALARM FOR SAFETY. V PACED IN 70S ON TELE, VSS, RA. PLAN IS TO DC TO [facility] TOMORROW. CALL LIGHT IN REACH, BED IN LOW LOCKED POSITION.
[2024-09-07 20:05] VITALS: BP 119/64
[2024-09-08 03:23] VITALS: BP 121/64
[2024-09-08 05:31] LABS: International Normalized Ratio 2.75; Prothrombin Time Results 27.3 Sec (9.7-11.5)
[2024-09-08 07:39] VITALS: BP 96/64
[2024-09-08 08:57] VITALS: BP 138/66
--- NOTE | 2024-09-08 08:57 | NUR ---
PT BP LOW THIS MORNING 96/68, RECHECKED BEFORE GIVING BP MEDICATIONS, BP WAS 138/66 HR 86 BPM
[2024-09-08 12:07] VITALS: BP 122/53
--- NOTE | 2024-09-08 14:48 | NUR ---
SHIFT SUMMARY PT AOX3, UNABLET TO DETERMINE SITUATION, COOPERATIVE, ABLE TO MAKE NEEDS KNOWN. TELE AND IV DC'D BY THIS RN AND EDUCATION WAS PROVIDED. TELE SENT BACK TO PCU. THIS RN WENT OVER MEDICATION WITH PT AND FAMILY MEMBER. LAKISHA ODONNELL TO FILL NEW MEDS. PT SENT WITH HARD SCRIPT FOR OXY. PT TRANSPORTED VIA WHEELCHAIR BY CARDIOPULMONARY PHYSICAL THERAPIST DOWN TO PT ENTRANCE WHERE FAMILY WILL TRANSPORT TO [place]. PT TOOK BELONGINGS AND DC PAPERWORK IN HAND DOWN TO TRANSPORT.
[2024-09-08] MEDS ORDERED: Warfarin Sodium 3 MG Tab PO ONE (18:00)
== END 2024-09-08 14:36 | disposition home health service (06) | DRG 280 ==
LOC: ER 11:51 → ERHOLD 11:52 → MEDS 11:52 → ENPENDDIS 09-08 11:11 → MEDS 09-08 14:36
PROVIDERS: Emergency Medicine; Internal Medicine; Nurse Practitioner Acute Care; Student in an Organized Health Care Education/Training Program; ADMIT Internal Medicine
DX: I13.0 Hypertensive heart and chronic kidney disease with heart failure and stage 1 through stage 4 chronic kidney disease, or unspecified chronic kidney disease (principal); I50.23 Acute on chronic systolic (congestive) heart failure; I21.A1 Myocardial infarction type 2; N18.4 Chronic kidney disease, stage 4 (severe); F17.210 Nicotine dependence, cigarettes, uncomplicated; I48.0 Paroxysmal atrial fibrillation; E11.22 Type 2 diabetes mellitus with diabetic chronic kidney disease; J44.9 Chronic obstructive pulmonary disease, unspecified; G31.84 Mild cognitive impairment of uncertain or unknown etiology; I42.8 Other cardiomyopathies; E03.9 Hypothyroidism, unspecified; Z85.038 Personal history of other malignant neoplasm of large intestine; Z95.2 Presence of prosthetic heart valve; Z87.19 Personal history of other diseases of the digestive system; Z90.710 Acquired absence of both cervix and uterus; Z90.49 Acquired absence of other specified parts of digestive tract; Z98.890 Other specified postprocedural states; Z88.2 Allergy status to sulfonamides; Z91.048 Other nonmedicinal substance allergy status; Z79.899 Other long term (current) drug therapy; Z79.82 Long term (current) use of aspirin; Z79.890 Hormone replacement therapy; Z95.0 Presence of cardiac pacemaker; Z91.148 Patient's other noncompliance with medication regimen for other reason
CPT/HCPCS: 0241U; 36415; 71046; 71260; 80048; 80053; 80069; 80162; 83036; 83735; 83880; 84443; 84484; 85014; 85018; 85025; 85027; 85049; 85379; 85520; 85610; 85730; 93005; 93010; 94640; 94664; 94760; 96365; 96366; 96374; 96375; 96376; 97110; 97116; 97161; 97165; 97530; 97535; 99285-25; A9270; C8929; G0378; J1644; J1650; J1940; J2405; J2919; J3010; Q9957; Q9967

== ENCOUNTER 2024-09-24 12:33 | Emergency (ER) | payer OTHER ==
[~2024-09-24] VITALS: Ht 165.1 cm; Wt 72.6 kg
[~2024-09-24 12:33] MED LIST changes: +Calcium Carbon500 MG PO; +JARDIANCE10 MG PO; +Lisinopril2.5 MG PO; +METO25ER PO; +OXAYDO5 M1 PO; +PRAM.125 PO
[2024-09-24 12:58] LABS: BASOPHILS ABSOLUTE AUTO 0.02 K/mm3 (0.00-0.23); BASOPHILS PERCENT AUTO 0 % (0-2); EOSINOPHILS ABSOLUTE AUTO 0.09 K/mm3 (0.00-0.68); EOSINOPHILS PERCENT AUTO 1 % (0-6); Hematocrit 37.2 % (33.0-51.0); Hemoglobin 12.2 g/dL (11.5-16.0); IMMATURE GRAN ABSOLUTE AUTO 0.04 K/mm3 (0.00-0.10); IMMATURE GRAN PERCENT AUTO 1 % (0-1); LYMPHOCYTES ABSOLUTE AUTO 1.12 K/mm3 (0.84-5.20); LYMPHOCYTES PERCENT AUTO 16 % (21-46); MONOCYTES ABSOLUTE AUTO 0.44 K/mm3 (0.16-1.47); MONOCYTES PERCENT AUTO 6 % (4-13); Mean Corpuscular HGB 31.2 pg (26.0-34.0); Mean Corpuscular HGB Conc 32.8 g/dL (31.5-36.5); Mean Corpuscular Volume 95 fL (80-100); Mean Platelet Volume 10.7 fL (9.1-12.4); NEUTROPHILS ABSOLUTE AUTO 5.38 K/mm3 (1.96-9.15); NEUTROPHILS PERCENT AUTO 76 % (41-73); Platelet Count 173 K/mm3 (150-400); RDW Standard Deviation 48.6 fL (35.1-46.3); Red Blood Cell Count 3.91 M/mm3 (3.80-5.20); White Blood Cell Count 7.09 K/mm3 (4.00-11.30)
[2024-09-24 13:21] LABS: Bun/Creatinine Ratio 20.5 (12.0-20.0); Calcium, Blood 9.3 mg/dL (8.5-10.1); Creatinine, Blood 2.29 mg/dL (0.40-1.00); Potassium, Blood 4.3 mmol/L (3.5-5.5)
[2024-09-24 13:24] LABS: Prothrombin Time Results 58.4 Sec (9.7-11.5)
[2024-09-24 13:34] LABS: International Normalized Ratio 6.25
[2024-09-24] MEDS ORDERED: Phytonadione 5 MG Tab PO ONE (13:40)
[2024-09-24 13:53] LABS: Alanine Aminotransfer (ALT/SGP 19 U/L (12-78); Albumin, Blood 3.1 g/dL (3.4-5.0); Alk Phos 60 U/L (50-136); Aspartate Aminotrans (AST/SGOT 16 U/L (12-37); Bilirubin, Direct <0.1 mg/dL (0.0-0.3); Bilirubin, Total 0.4 mg/dL (0.1-1.0); Globulin, Blood 3.2 g/dL (2.2-4.0); Total Protein, Blood 6.3 g/dL (6.4-8.2)
[2024-09-24 13:54] LABS: Bilirubin, Indirect Unable to Calculate mg/dL (0.1-0.7)
[2024-09-24 17:04] VITALS: BP 134/64
== END 2024-09-24 17:05 | disposition home or self-care (01) ==
LOC: ER 12:33
PROVIDERS: Student in an Organized Health Care Education/Training Program
DX: K62.5 Hemorrhage of anus and rectum (principal); R79.1 Abnormal coagulation profile; I12.9 Hypertensive chronic kidney disease with stage 1 through stage 4 chronic kidney disease, or unspecified chronic kidney disease; N18.4 Chronic kidney disease, stage 4 (severe); E03.9 Hypothyroidism, unspecified; J44.9 Chronic obstructive pulmonary disease, unspecified; E11.22 Type 2 diabetes mellitus with diabetic chronic kidney disease; F17.210 Nicotine dependence, cigarettes, uncomplicated; Z79.51 Long term (current) use of inhaled steroids; Z79.899 Other long term (current) drug therapy; Z79.01 Long term (current) use of anticoagulants; Z88.2 Allergy status to sulfonamides; Z91.048 Other nonmedicinal substance allergy status; Z51.81 Encounter for therapeutic drug level monitoring; Z95.2 Presence of prosthetic heart valve
CPT/HCPCS: 36415; 74177; 80048; 80076; 83690; 85025; 85610; 99284-25; A9270; Q9967

== ENCOUNTER → 2024-10-16 | Outpatient (CLI) | payer OTHER ==
[2024-10-16 10:15] LABS: Prothrombin Time Results 39.3 Sec (9.7-11.5)
[2024-10-16 10:23] LABS: International Normalized Ratio 4.08
== END ==
LOC: LAB 09:42 → LAB SHORT 09:42
PROVIDERS: Family Medicine
DX: Z51.81 Encounter for therapeutic drug level monitoring (principal); Z95.2 Presence of prosthetic heart valve; Z79.01 Long term (current) use of anticoagulants
CPT/HCPCS: 85610

== ENCOUNTER → 2024-10-17 | Outpatient (CLI) | payer OTHER ==
[2024-10-17 10:03] LABS: International Normalized Ratio 2.6; Prothrombin Time Results 25.9 Sec (9.7-11.5)
== END ==
LOC: LAB SHORT 09:35 → LAB 09:35
PROVIDERS: Family Medicine
DX: Z51.81 Encounter for therapeutic drug level monitoring (principal); Z95.2 Presence of prosthetic heart valve
CPT/HCPCS: 85610

== ENCOUNTER 2024-11-03 13:06 | Emergency (ER) | payer OTHER ==
[~2024-11-03] VITALS: Ht 165.1 cm; Wt 72.6 kg
[2024-11-03 14:04] LABS: BASOPHILS ABSOLUTE AUTO 0.03 K/mm3 (0.00-0.23); BASOPHILS PERCENT AUTO 0 % (0-2); EOSINOPHILS ABSOLUTE AUTO 0.13 K/mm3 (0.00-0.68); EOSINOPHILS PERCENT AUTO 2 % (0-6); Hemoglobin 12.8 g/dL (11.5-16.0); IMMATURE GRAN ABSOLUTE AUTO 0.08 K/mm3 (0.00-0.10); IMMATURE GRAN PERCENT AUTO 1 % (0-1); LYMPHOCYTES ABSOLUTE AUTO 1.13 K/mm3 (0.84-5.20); LYMPHOCYTES PERCENT AUTO 13 % (21-46); MONOCYTES ABSOLUTE AUTO 0.57 K/mm3 (0.16-1.47); MONOCYTES PERCENT AUTO 7 % (4-13); Mean Corpuscular HGB 30.8 pg (26.0-34.0); Mean Corpuscular HGB Conc 32.8 g/dL (31.5-36.5); Mean Corpuscular Volume 94 fL (80-100); Mean Platelet Volume 10.7 fL (9.1-12.4); NEUTROPHILS ABSOLUTE AUTO 6.88 K/mm3 (1.96-9.15); NEUTROPHILS PERCENT AUTO 78 % (41-73); Platelet Count 176 K/mm3 (150-400); RDW Coefficient Variation 15.6 % (11.7-14.2); RDW Standard Deviation 53.6 fL (35.1-46.3); Red Blood Cell Count 4.16 M/mm3 (3.80-5.20); White Blood Cell Count 8.82 K/mm3 (4.00-11.30)
[2024-11-03 14:34] LABS: Albumin, Blood 3.5 g/dL (3.4-5.0); Bilirubin, Total 0.6 mg/dL (0.1-1.0); Bun/Creatinine Ratio 19.4 (12.0-20.0); Calcium, Blood 10.3 mg/dL (8.5-10.1); Creatinine, Blood 2.22 mg/dL (0.40-1.00); Globulin, Blood 3.6 g/dL (2.2-4.0); Potassium, Blood 5.3 mmol/L (3.5-5.5); Total Protein, Blood 7.1 g/dL (6.4-8.2)
[2024-11-03 14:48] LABS: Source, Urine Clean Catch
[2024-11-03 14:52] LABS: Appearance, Urine Cloudy (Clear); Bilirubin, Urine Neg (Neg); Blood, Urine 3+ (Neg); Glucose Qualitative, Urine 2+ (Neg); Ketones, Urine Neg (Neg); Leukocyte Esterase, Urine 3+ (Neg); Nitrite, Urine Pos (Neg); Protein, Urine 2+ (Neg); Urobilinogen, Urine NORM (Normal)
[2024-11-03 15:02] LABS: Color, Urine Pale Yellow (P-Yellow)
[2024-11-03 15:03] LABS: Bacteria Many /hpf; Squamous Epithelial Cells Mod /hpf (Few); White Blood Cells, Urine TNTC /hpf (0-5)
[2024-11-03 15:15] VITALS: BP 127/65
[2024-11-03] MEDS ORDERED: NS 1,000 ML IV SCH (15:40)
[2024-11-03 16:00] LABS: Source, Urine Straight Cath
[2024-11-03 16:10] LABS: Appearance, Urine Turbid (Clear); Bilirubin, Urine Neg (Neg); Blood, Urine 4+ (Neg); Glucose Qualitative, Urine 2+ (Neg); Ketones, Urine Neg (Neg); Leukocyte Esterase, Urine 3+ (Neg); Nitrite, Urine Pos (Neg); Protein, Urine 3+ (Neg); Urobilinogen, Urine NORM (Normal)
[2024-11-03 16:31] LABS: Color, Urine Pale Yellow (P-Yellow)
[2024-11-03 16:33] LABS: Bacteria Many /hpf; Mucus Light (0-Heavy); Red Blood Cells, Urine 0-2 /hpf (0-2); Squamous Epithelial Cells Many /hpf (Few); White Blood Cells, Urine TNTC /hpf (0-5)
[2024-11-03] MEDS ORDERED: Cephalexin Monohydrate 500 MG Cap PO ONE (16:55)
== END 2024-11-03 17:10 ==
LOC: ER 13:06
PROVIDERS: Student in an Organized Health Care Education/Training Program
DX: N39.0 Urinary tract infection, site not specified (principal); I12.9 Hypertensive chronic kidney disease with stage 1 through stage 4 chronic kidney disease, or unspecified chronic kidney disease; E11.22 Type 2 diabetes mellitus with diabetic chronic kidney disease; N18.4 Chronic kidney disease, stage 4 (severe); I48.0 Paroxysmal atrial fibrillation; J44.9 Chronic obstructive pulmonary disease, unspecified; I42.9 Cardiomyopathy, unspecified; E03.9 Hypothyroidism, unspecified; G31.84 Mild cognitive impairment of uncertain or unknown etiology; Z95.2 Presence of prosthetic heart valve; Z88.2 Allergy status to sulfonamides; Z91.048 Other nonmedicinal substance allergy status; Z79.890 Hormone replacement therapy; Z79.51 Long term (current) use of inhaled steroids; Z79.01 Long term (current) use of anticoagulants; Z79.84 Long term (current) use of oral hypoglycemic drugs; Z79.899 Other long term (current) drug therapy
CPT/HCPCS: 80053; 81001; 83690; 85025; 87077; 87086; 87186; 96360; 99283-25; A9270; J7030

== ENCOUNTER → 2025-01-10 | Outpatient (CLI) | payer OTHER ==
[2025-01-10 17:32] LABS: Source, Urine Clean Catch
[2025-01-10 19:49] LABS: Bilirubin, Urine Neg (Neg); Glucose Qualitative, Urine 2+ (Neg); Ketones, Urine Neg (Neg); Leukocyte Esterase, Urine 3+ (Neg); Protein, Urine 3+ (Neg); Specific Gravity, Urine 1.025 (1.003-1.022); Urobilinogen, Urine NORM (Normal)
[2025-01-10 19:57] LABS: Color, Urine Pale Yellow (P-Yellow)
[2025-01-10 19:59] LABS: Red Blood Cells, Urine TNTC /hpf (0-2); White Blood Cells, Urine TNTC /hpf (0-5)
== END ==
LOC: LAB SHORT 17:26 → LAB 17:26
PROVIDERS: Family Medicine
DX: N39.0 Urinary tract infection, site not specified (principal)
CPT/HCPCS: 81001; 87077; 87086; 87186

== ENCOUNTER → 2025-04-15 | Outpatient (CLI) | payer OTHER | LOC: LAB 15:26 → LAB SHORT 15:26 | DX: N39.0 Urinary tract infection, site not specified (principal) | CPT/HCPCS: 87077; 87086; 87186 ==

== ENCOUNTER → 2025-05-04 | Outpatient (CLI) | payer OTHER ==
[2025-05-04 12:46] LABS: Source, Urine Clean Catch
[2025-05-04 13:33] LABS: Bilirubin, Urine Neg (Neg); Glucose Qualitative, Urine 2+ (Neg); Ketones, Urine Neg (Neg); Leukocyte Esterase, Urine 3+ (Neg); Protein, Urine 3+ (Neg); Specific Gravity, Urine 1.015 (1.003-1.022); Urobilinogen, Urine NORM (Normal)
[2025-05-04 13:37] LABS: Color, Urine Pale Yellow (P-Yellow)
[2025-05-04 13:42] LABS: White Blood Cells, Urine TNTC /hpf (0-5)
[2025-05-04 13:44] LABS: Red Blood Cells, Urine 0-2 /hpf (0-2); Yeast/Fungi Urine Rare /hpf
== END | disposition home or self-care (01) ==
LOC: LAB SHORT 12:45 → LAB 12:45
PROVIDERS: Family Medicine
DX: N39.0 Urinary tract infection, site not specified (principal); R32 Unspecified urinary incontinence
CPT/HCPCS: 81001; 87077; 87086; 87186

== ENCOUNTER 2025-06-14 21:27 | Emergency (ER) | payer OTHER ==
[~2025-06-14] VITALS: Ht 162.6 cm; Wt 72.6 kg
[2025-06-14 22:34] LABS: Source, Urine Clean Catch
[2025-06-14 22:38] LABS: Bilirubin, Urine Neg (Neg); Glucose Qualitative, Urine 3+ (Neg); Ketones, Urine Neg (Neg); Leukocyte Esterase, Urine 3+ (Neg); Protein, Urine 3+ (Neg); Specific Gravity, Urine 1.010 (1.003-1.022); Urobilinogen, Urine NORM (Normal)
[2025-06-14 22:48] LABS: Color, Urine Yellow (P-Yellow); White Blood Cells, Urine TNTC /hpf (0-5)
[2025-06-14] MEDS ORDERED: CEPH500 PO (23:07)
[2025-06-14 23:28] VITALS: BP 131/59
== END 2025-06-14 23:50 | disposition home or self-care (01) ==
LOC: ER 21:27
PROVIDERS: Student in an Organized Health Care Education/Training Program
DX: N30.00 Acute cystitis without hematuria (principal); I13.0 Hypertensive heart and chronic kidney disease with heart failure and stage 1 through stage 4 chronic kidney disease, or unspecified chronic kidney disease; E11.22 Type 2 diabetes mellitus with diabetic chronic kidney disease; N18.4 Chronic kidney disease, stage 4 (severe); I50.9 Heart failure, unspecified; I48.0 Paroxysmal atrial fibrillation; J44.9 Chronic obstructive pulmonary disease, unspecified; E03.9 Hypothyroidism, unspecified; F17.210 Nicotine dependence, cigarettes, uncomplicated; Z88.2 Allergy status to sulfonamides; Z91.048 Other nonmedicinal substance allergy status; Z79.899 Other long term (current) drug therapy; Z79.01 Long term (current) use of anticoagulants; Z79.890 Hormone replacement therapy
CPT/HCPCS: 81001; 87086; 99283; A9270